=== PATIENT | male | born 1990 | race Caucasian/White ===

== ENCOUNTER 2019-05-30 20:19 | Emergency (ER) | payer OTHER ==
[~2019-05-30] VITALS: Ht 175.3 cm; Wt 95.2 kg
[2019-05-30] MEDS ORDERED: Lamotrigine100 MG PO (21:11)
[2019-05-30] MEDS ORDERED: CEPH500 PO (22:37)
== END 2019-05-30 22:44 | disposition home or self-care (01) ==
LOC: ER 20:19
DX: S60.552A Superficial foreign body of left hand, initial encounter (principal); W45.8XXA Other foreign body or object entering through skin, initial encounter
CPT/HCPCS: 10120; 12001; 73120; 90471; 90714; 99283-25

== ENCOUNTER → 2024-07-03 | Outpatient (CLI) | payer OTHER ==
[~2024-07-03] MED LIST: CEPH500 PO; Lamotrigine100 MG PO
[2024-07-07 20:15] LABS: APTIMA MEDIA TYPE Urine; C. TRACHOMATIS BY TMA Positive (Negative); N. GONORRHOEAE BY TMA Negative (Negative); SPECIMEN SOURCE Urine; T. VAGINALIS BY TMA Negative (Negative)
== END ==
LOC: LAB 12:49 → LAB SHORT 12:49
PROVIDERS: Nurse Practitioner Family
DX: R30.0 Dysuria (principal); Z20.2 Contact with and (suspected) exposure to infections with a predominantly sexual mode of transmission; Z72.51 High risk heterosexual behavior
CPT/HCPCS: 87491; 87591; 87661

== ENCOUNTER 2025-11-18 11:20 | Emergency (ER) | payer OTHER ==
[~2025-11-18] VITALS: Ht 180.3 cm; Wt 101.6 kg
[2025-11-18 12:55] LABS: Influenza A, PCR NEGATIVE (NEGATIVE); Influenza B, PCR NEGATIVE (NEGATIVE); Resp Syncytial Virus, PCR NEGATIVE (NEGATIVE); SARS-Cov-2 (COVID-19) PCR, MMC NEGATIVE (NEGATIVE)
[2025-11-18 16:56] VITALS: BP 120/71
== END 2025-11-18 17:42 | disposition home or self-care (01) ==
LOC: ER 11:20
PROVIDERS: Emergency Medicine
DX: J40 Bronchitis, not specified as acute or chronic (principal)
CPT/HCPCS: 71046; 87637; 99283-25